=== PATIENT | female | born 1955 | race Caucasian/White ===

== ENCOUNTER 2017-08-24 06:07 | Emergency (ER) | payer OTHER ==
[~2017-08-24 06:07] MED LIST: ASPI-663 PO; FA/V1CAP3; HYDR-4309 PO; MULT-1335 PO
[2017-08-24] MEDS ORDERED: AMIT-104 PO (06:22)
--- NOTE | 2017-08-24 06:30 | ER Report ---
History and Physical Time Seen By MD: 06:29 Hx. of Stated Complaint: PATIENT FELL YESTERDAY AT [employer]- SHE TRIPPED TO THE SIDE AND CAUGHT HERSELF WITH LEFT HAND. PATIENT HAS PAIN ALONG LEFT LATERAL WRIST AND HAND. PATIENT SWELLING AND PAIN. HPI/ROS CHIEF COMPLAINT: Left wrist pain HISTORY OF PRESENT ILLNESS: 62-year-old female who fell yesterday during [employer] onto her outstretched left wrist. She's noted throbbing pain in the left lateral aspect of her wrist all night. She did not sleep well. She's taken ibuprofen without improvement. She notes no gross deformity. There is some soft tissue swelling noted. She has significantly decreased range of motion. She notes radiation of the pain of her left arm. She notes no numbness or tingling in her fingers of the left hand. Patient denies any other injuries during the event. Allergies: Coded Allergies: No Known Drug Allergies (Verified , 08/24/17) Home Meds Active Scripts Ondansetron (ZOFRAN ODT) 4 Mg Tab.rapdis, 4 MG PO every 6 hours Y for NAUSEA/ VOMITING, #15 TAB TAKE 1 TABLET BY MOUTH EVERY 12 HOURS Prov:JAN NOVAK DO 08/24/17 Hydrocodone Bit/Acetaminophen (NORCO 5-325 TABLET) 1 Each Tablet, 1 EACH PO Q4H Y for PAIN, #15 TAB Prov:JAN NOVAK DO 08/24/17 Reported Medications Amitriptyline Hcl (AMITRIPTYLINE HCL) 10 Mg Tablet, 10 MG PO QHS, #5 TAB 08/24/17 FA/Vit C/E/Zinc/Copper/Lut/Shahbaz (Ocuvel Capsule) 1 Each Capsule 04/20/15 Aspirin/Acetaminophen/Caffeine (Excedrin Caplet) 1 Tab Tablet, 1 TAB PO PRN, 0 Refills 08/20/09 Multivitamins W-Minerals (Multiple Vitamin) 1 Tab Tablet, 1 TAB PO DAILY, 0 Refills 08/20/09 Discontinued Scripts Hydrocodone Bit/Acetaminophen (NORCO 5-325 TABLET) 1 Each Tablet, 1 EACH PO Q4- 6H Y for PAIN, #10 TAB Prov:NORBERT SESAY 04/20/15 Reviewed Nurses Notes: Yes Old Medical Records Reviewed: Yes Hx Smoking: No Constitutional Vital Sign - Last 24 Hours 08/24/17 08/24/17 08/24/17/17/18 06:14 06:18 06:22 06:37 Temp 98.1 Pulse 77 71 ??? Resp 16 B/P (MAP) 121/70 (87) 121/70 Pulse Ox 96 96 95 O2 Delivery Room Air 08/24/17 08/24/17 08/24/17 08/24/17 06:42 06:52 06:57 07:02 Pulse 72 73 72 B/P (MAP) 126/81 (96) Pulse Ox 93 92 95 08/24/17 07:06 B/P (MAP) 116/78 (91) Physical Exam General appearance: Mild distress Respiratory: Chest is non tender, lungs are clear to auscultation. Cardiac: Regular rate and rhythm Extremities: Left upper extremity is neurovascularly intact. There is tenderness over the lateral aspect of the wrist. There is decreased range of motion in her to pain. All fingers are neurovascularly intact. Patient was demonstrated a weak grasp. DIFFERENTIAL DIAGNOSIS: After history and physical exam differential diagnosis was considered for sprain, strain, fracture, dislocation, contusion, triangle fibrocartilage complex injury Medical Decision Making EKG/Imaging Imaging X-ray: Three-view left wrist was obtained. I viewed the images myself on the PACS system. My interpretation of the images is: No fracture no dislocation. There is a small chip noted on the radial aspect of the wrist of unclear significance.. The radiologist interpretation had no clinically significant variation from this interpretation. ED Course/Re-evaluation ED Course Patient was admitted to an examination room. H&P was done. The differential diagnoses was considered. On clinical examination. Patient has left wrist injury. Diagnostic x-rays are unremarkable. Patient be medicated with hydrocodone for pain. She states she might get nauseated soap protection for Zofran was provided. She is advised to increase her ibuprofen 200 mg to 3 tablets 3 times daily with food. She is fitted with a universal wrist splint to immobilize injury. He is advised to follow-up with [facility] if unimproved in 4-7 days Decision to Disposition Date: Aug 24, 2017 Decision to Disposition Time: 06:50 Depart Departure Latest Vital Signs Vital Signs Date Time Temp Pulse Resp B/P (MAP) Pulse Ox O2 Delivery O2 Flow Rate FiO2 08/24/17 07:06 116/78 (91) 08/24/17 07:02 72 95 08/24/17 06:18 98.1 16 Room Air Impression: Primary Impression: Left wrist sprain Condition: Improved Disposition: HOME OR SELF-CARE Referrals: CHAPARRITA PAYAN MD (PCP) New Scripts Ondansetron (ZOFRAN ODT) 4 Mg Tab.rapdis 4 MG PO every 6 hours Y for NAUSEA/VOMITING, #15 TAB TAKE 1 TABLET BY MOUTH EVERY 12 HOURS Prov: JAN NOVAK DO 08/24/17 Hydrocodone Bit/Acetaminophen (NORCO 5-325 TABLET) 1 Each Tablet 1 EACH PO Q4H Y for PAIN, #15 TAB Prov: JAN NOVAK DO 08/24/17 Patient Instructions: Wrist Sprain (ED) Additional Instructions: Take ibuprofen 200 mg 3 tablets 3 times a day with food Apply ice packs to your wrist area Wear splint for 5 days Follow-up with [facility] [phone] if unimproved in 4-5 days Problem Qualifiers Primary Impression: Left wrist sprain Encounter type: initial encounter Qualified Codes: S63.502A - Unspecified sprain of left wrist, initial encounter JAN NOVAK DO Aug 24, 2017 06:30
[2017-08-24] MEDS ORDERED: ONDA4TAB PO (06:52)
[2017-08-24] MEDS ORDERED: HYDR-4309 PO (06:52)
[2017-08-24] MEDS ORDERED: ONDANSETRON 4 MG ODT TH SL ONE (06:55)
[2017-08-24] MEDS ORDERED: ACET/HYDROC 5/325MG TH ER ONLY 2 TAB/BOTTLE PO ONE (06:55)
[2017-08-24 07:06] VITALS: BP 116/78
--- NOTE | 2017-08-24 07:06 | RADIOLOGY IMAGING REPORT ---
FACILITY: [facility] PATIENT NAME: Jazmyn Chandra : 1955 MR: [id number] V: [id number] EXAM DATE: ORDERING PHYSICIAN: JAN NOVAK TECHNOLOGIST: Location: [facility] Patient: Jazmyn Chandra : 1955 Visit/Account:[id number] Date of Sevice: 08/24/2017 INDICATION: Fall, generalized left wrist pain. EXAM DATE: 08/24/2017 6:32 AM COMPARISON: 04/20/2015. FINDINGS: 3 views left wrist. Mineralization may be low. No acute alignment abnormality or fracture. Moderate to severe 1st carpometacarpal joint arthrosis. Soft tissues are unremarkable. IMPRESSION: No acute osseous abnormality of the left wrist. Report Dictated By: Yared Ye MD at 08/24/2017 6:58 AM Report E-Signed By: Yared Ye MD at 08/24/2017 7:01 AM WSN:[id number]
== END 2017-08-24 07:10 | disposition home or self-care (01) ==
LOC: ER 06:46
DX: S63.502A Unspecified sprain of left wrist, initial encounter (principal); W18.30XA Fall on same level, unspecified, initial encounter
CPT/HCPCS: 73110; 99283; L3908; S0119

== ENCOUNTER → 2017-09-03 | Outpatient (CLI) | payer OTHER ==
[~2017-09-03] MED LIST changes: +AMIT-104 PO; +ONDA4TAB PO
--- NOTE | 2017-09-03 18:45 | RADIOLOGY IMAGING REPORT ---
FACILITY: [facility] PATIENT NAME: Jazmyn Chandra : 1955 MR: [id number] V: [id number] EXAM DATE: ORDERING PHYSICIAN: SAMANTHA BURTON TECHNOLOGIST: Location: [facility] Patient: Jazmyn Chandra : 1955 Visit/Account:[id number] Date of Sevice: 09/03/2017 CT left wrist Indication: Left wrist pain. Scaphoid fracture. Comparison: Plain radiographs of the left wrist from 08/24/2017 Technique: Axial CT images were obtained through the left wrist. Reformatted coronal and sagittal noble ges were reviewed. One of the following dose optimization techniques was utilized in the performance of this exam: autom ated exposure control; adjustment of the mA and/or kV according to the patient's size; or use of an i terative reconstruction technique. Specific details can be referenced in the facility's radiology CT exam operational policy. Findings: There is prominent widening of the scapholunate interval related to injury to the scapholunate ligame nt. Small sclerotic density along the radial margin of the scaphoid bone likely relates to a loose guillaume dy. There are moderate to severe osteophytic changes 1st CMC joint. There is a [id number] sized effusion of the dorsum of the radiocarpal joint noted as well. No acute fracture or dislocation. Visualized flexor and extensor tendons appear to be intact. IMPRESSION: 1. No acute osseous abnormality. 2. Findings suggest complete tear scapholunate ligament with widening scapholunate interval. 3. Small to moderate-sized effusion suggested at the dorsum of the wrist. Report Dictated By: Yifan Triana MD at 09/03/2017 5:19 PM Report E-Signed By: Yifan Triana MD at 09/03/2017 6:40 PM WSN:[id number]
== END ==
LOC: CT 15:52
PROVIDERS: ATTEND Orthopaedic Surgery Hand Surgery
DX: M25.532 Pain in left wrist (principal)

== ENCOUNTER 2018-10-13 00:23 | Day surgery (SDC) | payer OTHER ==
[~2018-10-13] VITALS: Ht 167.6 cm; Wt 66.7 kg
[~2018-10-13 00:23] MED LIST changes: +DICL-195 PO; -HYDR-4309 PO; +HYDR-653 PO
[2018-10-13] MEDS ORDERED: LIDOCAINE MPF 1% 5 ML VIAL ONE (07:02)
[2018-10-13] MEDS ORDERED: PROPOFOL EMUL(*) 10MG/ML 20 ML 40 ML ONE (07:02)
[2018-10-13 07:06] VITALS: BP 122/82
[2018-10-13] MEDS ORDERED: ACETAMINOPHEN(*)1000 MG/100 ML 100 ML IVPB ONE (07:15)
[2018-10-13 08:24] VITALS: BP 89/59
[2018-10-13 08:31] VITALS: BP 85/60
[2018-10-13 09:00] VITALS: BP 103/64
[2018-10-13] MEDS ORDERED: NORMOSOL R SOLN(*) 1000 ML BAG 1,000 ML IV PRN (09:00)
[2018-10-13] MEDS ORDERED: LIDOCAINE/SOD BICARB 8.4% SYR ID ONE (09:00)
[2018-10-13 09:17] VITALS: BP 107/73
[2018-10-13 09:19] VITALS: BP 106/72
== END 2018-10-13 09:42 | disposition home or self-care (01) ==
LOC: OR 00:23
PROVIDERS: ATTEND Family Medicine
DX: Z12.11 Encounter for screening for malignant neoplasm of colon (principal); K21.9 Gastro-esophageal reflux disease without esophagitis
CPT/HCPCS: 00812; 45378; J0131; J2001; J2704

== ENCOUNTER → 2018-10-26 | Outpatient (CLI) | payer OTHER ==
--- NOTE | 2018-10-26 15:12 | RADIOLOGY IMAGING REPORT ---
FACILITY: [facility] PATIENT NAME: Jazmyn Chandra : 1955 MR: [id number] V: [id number] EXAM DATE: ORDERING PHYSICIAN: JAMES BURTON TECHNOLOGIST: Location: [facility] [place] Patient: Jazmyn Chandra : 1955 Visit/Account:[id number] Date of Sevice: 10/26/2018 US VENOUS LOWER EXT RT HISTORY: Right knee swelling status post arthroscopy COMPARISON: None. FINDINGS: Grayscale, duplex and color Doppler interrogation of the right lower extremity deep veins from common femoral vein to proximal calf was completed. The greater saphenous vein in the right proximal thigh was evaluated using similar technique. Common femoral vein - Negative. Femoral vein - Negative. Deep femoral vein - Negative. Popliteal vein - Negative. Visualized deep calf veins - Negative. Popliteal fossa: Negative. Greater saphenous vein in the proximal thigh: Negative. There is a 7.9 x 2.5 x 9.8 cm complex knee effusion. IMPRESSION: 1. No evidence for right lower extremity DVT. 2. Large complex right knee effusion in this patient status post arthroscopy. Report Dictated By: James Gregorio MD at 10/26/2018 2:23 PM Report E-Signed By: James Gregorio MD at 10/26/2018 3:06 PM WSN:[email or web address]
== END ==
LOC: US 11:55
PROVIDERS: ATTEND Orthopaedic Surgery Hand Surgery
DX: M25.461 Effusion, right knee (principal)